=== PATIENT | female | born 1980 ===

== ENCOUNTER 2017-09-29 22:42 | Emergency (ER) | payer SELFPAY ==
[2017-09-29 22:53] VITALS: BP 113/75; PULSE 76; RESP 18; TEMP 97.8; O2SAT 98
--- NOTE | 2017-09-29 23:26 | ED PDOC ---
HPI: Chest Pain Time Seen by Provider: 09/29/17 22:57 Chief Complaint (Nursing): Chest Pain Chief Complaint (Provider): Headache and Neck Pain History Per: Corporate Attorney (In-demand Product Development Worker: Tj Leigh) History/Exam Limitations: language barrier Onset/Duration Of Symptoms: Days (x1) Additional Complaint(s): Marcia Morales is a 37 y/o female with no significant past medical history who presents to the ED complaining of head ache with associated neck pain, left shoulder pain, left arm pain, left-sided chest pain, and right leg pain for the past x1 day. 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 Patient states someone at work gave her some aspirin which provided some relief. She denies any trauma , vision changes, numbness, or weakness. PMD: Doctor at [place] Past Medical History Reviewed: Historical Data, Nursing Documentation, Vital Signs Vital Signs: Last Vital Signs Temp 97.8 F 09/29/17 22:51 Pulse 76 09/29/17 22:51 Resp 18 09/29/17 22:51 BP 113/75 09/29/17 22:51 Pulse Ox 98 10/02/17 07:56 - Medical History PMH: No Chronic Diseases - Surgical History Surgical History: No Surg Hx - Family History Family History: States: Unknown Family Hx - Social History Current smoker - smoking cessation education provided: No Alcohol: None Drugs: Denies - Home Medications Home Medications: Ambulatory Orders Medication Instructions Recorded Cyclobenzaprine [Cyclobenzaprine 10 mg PO BID #15 tab 09/30/17 HCl] Naproxen [Naprosyn] 500 mg PO BID #30 tablet 09/30/17 - Allergies Allergies/Adverse Reactions: Allergies Allergy/AdvReac Type Severity Reaction Status Date / Time No Known Allergies Allergy Verified 09/29/17 22:47 HUA Risk Score for UA/NSTEMI - HUA Risk Score Age > 64: NO 3 or more CAD Risk Factors: NO Known CAD (Stenosis greater than 50%): NO Aspirin use in past 7 days: YES Severe Angina: NO EKG ST changes greater than 0.5mm: NO Positive Cardiac Marker: NO HUA Score: 1 Risk %: 5% Wells Criteria for PE - Wells Criteria for Pulmonary Embolism Clinical Signs and Symptoms of DVT: No P.E is #1 Diagnosis, or Equally Likely: No Heart Rate >100: No Immobilization at least 3 days;Surgery previous 4 weeks: No Previous, objectively diagnosed PE or DVT: No Hemoptysis: No Malignancy w/treatment within 6 months, or palliative: No Total Score: 0 Review of Systems ROS Statement: Except As Marked, All Systems Reviewed And Found Negative Constitutional: Negative for: Fever Eyes: Negative for: Vision Change Cardiovascular: Positive for: Chest Pain (left side) Musculoskeletal: Positive for: Neck Pain, Shoulder Pain (left), Arm Pain (left) , Leg Pain (right) Neurological: Positive for: Headache. Negative for: Weakness, Numbness Physical Exam - Reviewed Nursing Documentation Reviewed: Yes Vital Signs Reviewed: Yes - Physical Exam Appears: Positive for: Non-toxic, In Acute Distress (mild painful distress) Head Exam: Positive for: ATRAUMATIC (tenderness head), NORMOCEPHALIC Skin: Positive for: Normal Color, Warm, Dry Eye Exam: Positive for: EOMI, Normal appearance, PERRL Neck: Positive for: Normal (tenderness bilateral neck), Supple Cardiovascular/Chest: Positive for: Regular Rate, Rhythm. Negative for: Chest Non Tender (tenderness to left chest wall), Murmur Respiratory: Positive for: Normal Breath Sounds. Negative for: Respiratory Distress Gastrointestinal/Abdominal: Positive for: Normal Exam, Soft. Negative for: Tenderness Back: Positive for: Normal Inspection. Negative for: L CVA Tenderness, R CVA Tenderness Extremity: Positive for: Normal ROM, Tenderness (L neck, L superior posterior shoulder), Other (No crepitus). Negative for: Deformity, Swelling Neurologic/Psych: Positive for: Alert, Oriented. Negative for: Motor/Sensory Deficits - Laboratory Results Result Diagrams: 09/30/17 00:08 09/30/17 00:08 - ECG O2 Sat by Pulse Oximetry: 98 (RA) Pulse Ox Interpretation: Normal Medical Decision Making Medical Decision Making: Time: 22:54 Initial Impression: Chest pain, headache, neck pain, upper extremity pain Initial Plan: --CT head w/o contrast --EKG --CMP --Troponin I --CBC w/ differential --D Dimer --CXR 2 views --Morphine 2 mg IV --Motrin 600 mg PO --Urinalysis ----- Scribe Attestation: Documented by Alex Zavaleta, acting as a scribe for Miguelina Amos MD. Provider Scribe Attestation: All medical record entries made by the Scribe were at my direction and personally dictated by me. I have reviewed the chart and agree that the record accurately reflects my personal performance of the history, physical exam, medical decision making, and the department course for this patient. I have also personally directed, reviewed, and agree with the discharge instructions and disposition. Disposition - Clinical Impression Clinical Impression: Chest wall pain - Disposition Disposition: Transfer of Care Disposition Time: 00:00 Condition: STABLE Additional Instructions: MARCIA MORALES, thank you for letting us take care of you today. Your provider was John Pierre MD and you were treated for CHEST PAIN, NUMBNESS IN LEFT ARM. The emergency medical care you received today was directed at your acute symptoms. If you were prescribed any medication, please fill it and take as directed. It may take several days for your symptoms to resolve. Return to the Emergency Department if your symptoms worsen, do not improve, or if you have any other problems. Please contact your doctor or call one of the physicians/clinics you have been referred to that are listed on the Patient Visit Information form that is included in your discharge packet. Bring any paperwork you were given at discharge with you along with any medications you are taking to your follow up visit. Our treatment cannot replace ongoing medical care by a primary care provider outside of the emergency department. Thank you for allowing the [facility] team to be part of your care today. If you had an X-Ray or CT scan: A Radiologist will review the ED reading if any change in treatment is needed we will contact you. Prescriptions: Cyclobenzaprine [Cyclobenzaprine HCl] 10 mg PO BID #15 tab Naproxen [Naprosyn] 500 mg PO BID #30 tablet Instructions: Chest Pain That Is Not Caused by the Heart (DC) Forms: [employer] (Yi) Print Language: VIET[place]ESE Patient Signed Over To: John Pierre
[2017-09-29 23:34] LABS: SQUAMOUS EPITHIAL 17 /hpf (0-5); URINE BACTERIA RARE (<OCC); URINE BILIRUBIN NEGATIVE (NEGATIVE); URINE BLOOD NEGATIVE (NEGATIVE); URINE CLARITY SLIGHTY-CLOUDY (Clear); URINE COLOR YELLOW (YELLOW); URINE GLUCOSE (UA) NEG (Normal); URINE LEUKOCYTE ESTERASE NEG Leu/uL (Negative); URINE PROTEIN NEGATIVE (NEGATIVE); URINE UROBILINOGEN 0.2-1.0 mg/dL (0.2-1.0)
[2017-09-30 00:11] LABS: BASO % 0.3 % (0.0-2.0); EOS # 0.2 K/uL (0.0-0.7); EOS % 3.3 % (0.0-4.0); HEMOGLOBIN 13.5 g/dL (12.0-16.0); LYMPH # 2.5 K/uL (1.0-4.3); LYMPH % 34.9 % (20.0-40.0); MEAN CELL VOLUME 87.5 fl (81.0-99.0); MEAN CORPUSCULAR HEMOGLOBIN 29.4 pg (27.0-31.0); MEAN CORPUSCULAR HGB CONC 33.6 g/dL (33.0-37.0); MEAN PLATELET VOLUME 8.3 fl (7.2-11.7); MONO # 0.6 K/uL (0.0-0.8); NEUT # 3.8 K/uL (1.8-7.0); NEUT % 52.5 % (50.0-75.0); RBC 4.58 Mil/uL (3.80-5.20); RED CELL DISTRIBUTION WIDTH 13.7 % (11.5-14.5); WHITE BLOOD COUNT 7.1 K/uL (4.8-10.8)
[2017-09-30 00:20] LABS: ALB/GLOB RATIO 1.2 (1.0-2.1); ALBUMIN 4.2 g/dL (3.5-5.0); ALT/SGPT 25 U/L (9-52); AST/SGOT 23 U/L (14-36); BLOOD UREA NITROGEN 17 mg/dl (7-17); CALCIUM 9.2 mg/dL (8.4-10.2); GFR AFRICAN-AMERICAN > 60; GFR NON-AFRICAN AMERICAN > 60
[2017-09-30] MEDS ORDERED: Iodixanol 320 MG/ML 100 ML BOTTLE IV ONE (01:16)
[2017-09-30] MEDS ORDERED: Sodium Chloride 0.9% 50 ML IV ONE (01:16)
--- NOTE | 2017-09-30 03:10 | ED PDOC ---
- Laboratory Results Result Diagrams: 09/30/17 00:08 09/30/17 00:08 - ECG O2 Sat by Pulse Oximetry: 98 (RA) Pulse Ox Interpretation: Normal Medical Decision Making Medical Decision Making: Time: 00:00 --Patient care endorsed from Dr. Amos to Dr. Pierre pending CT, reevaluation, and final disposition. Time: 01:53 CT Angio w/ contrast FINDINGS: Pulmonary arteries: Unremarkable. No pulmonary embolism. Aorta: No acute findings. No thoracic aortic aneurysm. Lungs: Unremarkable. No mass. No consolidation. Pleural space: Unremarkable. No significant effusion. No pneumothorax. Heart: Unremarkable. No cardiomegaly. No significant pericardial effusion. No evidence of RV dysfunction. Bones/joints: No acute fracture. No dislocation. Soft tissues: Unremarkable. Lymph nodes: Unremarkable. No enlarged lymph nodes. IMPRESSION: Unremarkable chest CTA. No pulmonary embolism. Time: 03:07 --Upon provider reevaluation patient is feeling better, is medically stable, and requires no further treatment in the ED at this time. Patient will be discharged home with Rx for cyclobenzaprine and Naprosyn. Counseling was provided and all questions were answered regarding diagnosis. There is agreement to discharge plan. Return if symptoms persist or worsen. ----- Scribe Attestation: Documented by Alex Zavaleta, acting as a scribe for John Pierre MD. Provider Scribe Attestation: All medical record entries made by the Scribe were at my direction and personally dictated by me. I have reviewed the chart and agree that the record accurately reflects my personal performance of the history, physical exam, medical decision making, and the department course for this patient. I have also personally directed, reviewed, and agree with the discharge instructions and disposition. Disposition - Clinical Impression Clinical Impression: Chest wall pain - POA Present On Arrival: None - Disposition Disposition: Routine/Home Disposition Time: 03:07 Condition: STABLE Additional Instructions: MARCIA MORALES, thank you for letting us take care of you today. Your provider was John Pierre MD and you were treated for CHEST PAIN, NUMBNESS IN LEFT ARM. The emergency medical care you received today was directed at your acute symptoms. If you were prescribed any medication, please fill it and take as directed. It may take several days for your symptoms to resolve. Return to the Emergency Department if your symptoms worsen, do not improve, or if you have any other problems. Please contact your doctor or call one of the physicians/clinics you have been referred to that are listed on the Patient Visit Information form that is included in your discharge packet. Bring any paperwork you were given at discharge with you along with any medications you are taking to your follow up visit. Our treatment cannot replace ongoing medical care by a primary care provider outside of the emergency department. Thank you for allowing the [facility] team to be part of your care today. If you had an X-Ray or CT scan: A Radiologist will review the ED reading if any change in treatment is needed we will contact you. Prescriptions: Cyclobenzaprine [Cyclobenzaprine HCl] 10 mg PO BID #15 tab Naproxen [Naprosyn] 500 mg PO BID #30 tablet Instructions: Chest Pain That Is Not Caused by the Heart (DC) Forms: [employer] (Indonesian) Print Language: CITIZEN OF [place]
--- NOTE | 2017-09-30 09:07 | CARD ---
APPROVED REPORT Date of service: 09/29/2017 EKG Measurement Heart [id number] <Conclusion> Normal sinus rhythm Possible Anterior infarct, age undetermined Abnormal ECG
--- NOTE | 2017-09-30 10:05 | CT ---
Date of service: 09/29/2017 PROCEDURE: CT HEAD WITHOUT CONTRAST. HISTORY: CH[facility]Z COMPARISON: None available. TECHNIQUE: Axial computed tomography images were obtained through the head/brain without intravenous contrast. Radiation dose: Total exam DLP = 754.24 mGy-cm. This CT exam was performed using one or more of the following dose reduction techniques: Automated exposure control, adjustment of the mA and/or kV according to patient size, and/or use of iterative reconstruction technique. FINDINGS: HEMORRHAGE: No intracranial hemorrhage. BRAIN: Pope-white matter differentiation is preserved. There is no mass, mass effect or abnormal extra-axial fluid collection. There is no territorial infarction. The midline sagittal structures are normal. VENTRICLES: The ventricles are normal in size, shape and configuration. CALVARIUM: There is no calvarial fracture or extracranial soft tissue swelling. PARANASAL SINUSES: Predominantly clear. MASTOID AIR CELLS: Predominantly clear. OTHER FINDINGS: None. IMPRESSION: No acute intracranial abnormality. A preliminary report was provided by [facility].
--- NOTE | 2017-09-30 11:22 | CT ---
Date of service: 09/30/2017 PROCEDURE: CT Chest with contrast (Pulmonary Angiogram) HISTORY: elevated d dimer COMPARISON: None available. TECHNIQUE: Axial computed tomography images were obtained of the chest in the pulmonary arterial phase of enhancement. Coronal and sagittal reformatted images were created and reviewed. Intravenous contrast dose: Visipaque 320, 90.1 cc Radiation dose: Total exam DLP = 216.24 mGy-cm. This CT exam was performed using one or more of the following dose reduction techniques: Automated exposure control, adjustment of the mA and/or kV according to patient size, and/or use of iterative reconstruction technique. FINDINGS: PULMONARY ARTERIES: Unremarkable. No pulmonary embolism demonstrated. AORTA: No acute findings. No thoracic aortic aneurysm. LUNGS: A punctate granuloma is seen at the left lower lobe superior segment calcified. No infiltrate or other pulmonary nodule appreciable. Central airways are clear throughout. PLEURAL SPACES: Unremarkable. No effusion or pneumothorax. HEART: Unremarkable. No cardiomegaly. No significant pericardial effusion. LYMPH NODES: No lymphadenopathy. BONES, CHEST WALL: Limited anterior wedging of the T9 through T12 to bodies is appreciated likely reflecting minimal compression fractures condyle ultimately of indeterminate age but potentially chronic. Clinically correlate further. OTHER FINDINGS: Unremarkable. IMPRESSION: Unremarkable CT pulmonary angiogram. No pulmonary embolus. Tiny granuloma left lower lobe superior segment. No acute infiltrate pleural or pericardial effusion appreciable.
== END 2017-09-30 03:29 | disposition home or self-care (01) ==
LOC: H.ER 22:42
DX: R07.89 Other chest pain (principal)
CPT/HCPCS: 70450; 71046; 71275; 80053; 81003; 81025; 84484; 85025; 85378; 93005; 96374; 99284; J1885; J2270; Q9967